=== PATIENT | female | born 1965 | race Hispanic/Latino ===

== ENCOUNTER 2025-11-16 16:29 | Emergency (ER) | payer OTHER, SELFPAY ==
[2025-11-16] MEDS ORDERED: Ondansetron PF 4 MG/2 ML Vial ONE (16:57)
[2025-11-16 17:29] LABS: ALT (SGPT) 33 U/L (Less than 34); AST (SGOT) 29 U/L (11-34); Albumin 3.7 g/dL (3.1-4.5); Alkaline Phosphatase 109 U/L (40-110); Anion Gap 12 mmol/L (10-20); BUN (Urea Nitrogen) 13 mg/dL (9.8-20.1); Bilirubin, Total 0.3 mg/dL (0.3-1.2); Calc. Creatinine Clearance 0 mL/min (70-130); Calcium 9.0 mg/dL (7.8-10.44); Carbon Dioxide 25 mmol/L (22-29); Chloride 108 mmol/L (98-107); Globulin 3.4 g/dL (2.4-3.5); Glucose 112 mg/dL (70-105); Hematocrit 35.5 % (36.0-47.0); Hemoglobin 12.6 g/dL (12.0-16.0); Mean Corpuscular Hemoglobin 29.9 pg (27.0-31.0); Mean Corpuscular Volume 84.2 fl (78.0-98.0); Platelet Count 362 10x3/uL (130-400); Potassium 3.5 mmol/L (3.5-5.1); Red Blood Cell (RBC) Count 4.21 mill/uL (4.20-5.40); Sodium 141 mmol/L (136-145)
[2025-11-16 17:31] LABS: White Blood Cell (WBC) Count 5.7 10x3/uL (4.8-10.8)
[2025-11-16 17:32] LABS: Platelet Adequacy Comment Appears Adequate
[2025-11-16] MEDS ORDERED: Tetracaine 0.5% PF 4 ML BOT ONE (18:42)
[2025-11-16] MEDS ORDERED: Fluorescein Opthalmic Strip ONE (18:43)
[2025-11-16 19:07] LABS: INR-International Normal Ratio 1.0; Prothrombin Time 13.3 sec (12.0-14.7)
[2025-11-16 19:08] LABS: PTT 24.1 sec (22.9-36.1)
== END 2025-11-16 20:04 | disposition short-term general hospital (02) ==
LOC: NAV ERS 16:29
DX: S06.5XAA Traumatic subdural hemorrhage with loss of consciousness status unknown, initial encounter (principal); S42.021A Displaced fracture of shaft of right clavicle, initial encounter for closed fracture; S01.112A Laceration without foreign body of left eyelid and periocular area, initial encounter; S01.21XA Laceration without foreign body of nose, initial encounter; W20.8XXA Other cause of strike by thrown, projected or falling object, initial encounter
CPT/HCPCS: 12011; 70450; 70486; 71045; 72125; 80053; 85025; 85610; 85730; 90471; 90715; 96374; 96375; 96376; J2270; J2405; J7030; J7042